=== PATIENT | female | born 1970 | race Caucasian/White ===

== ENCOUNTER 2021-05-02 08:50 | Day surgery (SDC) | payer BC ==
--- NOTE | 2021-05-02 07:57 | PCM.PREANE ---
Preanesthetic Assessment - Procedure Proposed Procedure: Laparoscopic Cholecystectomy - Anesthesia/Transfusion/Family Hx Anesthesia History: Prior Anesthesia Without Reaction Family History of Anesthesia Reaction: No Transfusion History: No Prior Transfusion(s) Intubation History: Unknown - Review of Systems General: No Symptoms, Fatigue Pulmonary: No Symptoms (Smoker: 1 cigarette per week for past few months/times 16 years), Shortness of Breath Cardiovascular: No Symptoms (Non-ischemic cardiomyopathy, HTN, PVC, hyperlipidemia/ History of cardiac catheterization: 2011 negative/no blockage per patient), Dyspnea on Exertion (with prolonged standing) Gastrointestinal: No Symptoms (GERD-controlled), Abdominal Pain, Nausea (yesterday), Vomiting Neurological: No Symptoms, Numbness (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) Other: Reports: Diabetes (am blood sugar= 278 @ 0630), Depression, Anxiety (Bipolar) - Physical Assessment NPO Status Date: 05/01/21 NPO Status Time: 19:30 Vital Signs: HR: 75 Sat: 92% Temp: 97 B/P: 136/77 Resp: 20 Height: 1.68 m Weight: 135 kg ASA Class: 3 Mental Status: Alert & Oriented x3 Airway Class: Mallampati = 2 (upper) Dentition: Reports: Dentures, Caries Thyro-Mental Finger Breadths: 3 Mouth Opening Finger Breadths: 3 ROM/Head Extension: Full Lungs: Clear to Auscultation, Normal Respiratory Effort Cardiovascular: Regular Rate, Regular Rhythm, No Murmurs - Lab Values: All labs reviewed and noted and within acceptable ranges to proceed with scheduled procedure. HGBA1C= greater than 14 GFR= 54 - Imaging/EKG Impressions: EKG: SR rate= 73, borderline T wave abnormalities anterior leads, Nonspecific intraventricular conduction delay Holter Monitor: SR with no evidence of any tachy or faraz arrhythmias. Echocardiogram:04/24/21: EF= 60-65% CXR: negative - Allergies Allergies/Adverse Reactions: Allergies Allergy/AdvReac Type Severity Reaction Status Date / Time PILAR Inhibitors Allergy Cough Verified 05/01/21 16:05 lamotrigine [From Lamictal] Allergy Cannot Verified 05/01/21 16:05 Remember mold Allergy Cannot Verified 05/01/21 16:05 Remember - Anesthesia Plan Pre-Op Medication Ordered: Beta Aisha, Other (Preoperative oral meds: gabapentin 300mg and tylenol 975 mg @ 1000) Beta Aisha: Other (sotalol) Med Last Dose Date: 05/02/21 Med Last Dose Time: 06:30 - Acknowledgements Anesthesia Type Planned: General Anesthesia Pt an Appropriate Candidate for the Planned Anesthesia: Yes Alternatives and Risks of Anesthesia Discussed w Pt/Guardian: Yes Pt/Guardian Understands and Agrees with Anesthesia Plan: Yes PreAnesthesia Questionnaire HEENT History: Reports: Impaired Vision, Other (See Below) Other HEENT History: wears glasses, has dentures Cardiovascular History: Reports: Arrhythmia, Cardiomyopathy, High Cholesterol, Hypertension, Other (See Below) Other Cardiovascular History: PVCs, non-ischemic cardiomyopathy, heart catheterization in 2011 Respiratory History: Reports: None Gastrointestinal History: Reports: None Genitourinary History: Reports: None BUSINESS DEVELOPMENT ENGINEER History: Reports: None Musculoskeletal History: Reports: None Neurological History: Reports: Migraines Psychiatric History: Reports: Bipolar, Depression, PTSD Endocrine/Metabolic History: Reports: Obesity/BMI 30+ Hematologic History: Reports: None Immunologic History: Reports: None Oncologic (Cancer) History: Reports: None - Infectious Disease History Infectious Disease History: Reports: None - Past Surgical History Head Surgeries/Procedures: Reports: None HEENT Surgical History: Reports: Oral Surgery Cardiovascular Surgical History: Reports: None Respiratory Surgical History: Reports: None GI Surgical History: Reports: None Female Surgical History: Reports: None Male Surgical History: Reports: None Endocrine Surgical History: Reports: None Neurological Surgical History: Reports: None Musculoskeletal Surgical History: Reports: None, Other (See Below) Oncologic Surgical History: Reports: None Dermatological Surgical History: Reports: Other (See Below) - SUBSTANCE USE Tobacco Use Status *Q: Current Every Day Tobacco User Recreational Drug Use History: No - HOME MEDS Home Medications: Home Meds Sotalol [Betapace] 80 mg PO BID 03/19/16 [History] Empagliflozin [Jardiance] 10 mg PO QAM 05/01/21 [History] Fenofibric Acid (Choline) [Trilipix] 135 mg PO DAILY 05/01/21 [History] Omeprazole Magnesium [Prilosec Otc] 20 mg PO QAM 05/01/21 [History] Sertraline [Zoloft] 100 mg PO DAILY 05/01/21 [History] Topiramate [Topamax] 75 mg PO BID 05/01/21 [History] buPROPion [Wellbutrin SR] 150 mg PO DAILY 05/01/21 [History] busPIRone [Buspar] 15 mg PO TID 05/01/21 [History] carvediloL [Coreg] 25 mg PO BID 05/01/21 [History] hydrOXYzine HCL [hydrOXYzine] 50 - 150 mg PO BEDTIME PRN 05/01/21 [History] metFORMIN [Glucophage XR] 500 mg PO BID 05/01/21 [History] - CURRENT (IN HOUSE) MEDS Current Meds: Current Medications Lactated Ringer's (Ringers, Lactated) 1,000 mls @ 125 mls/hr IV ASDIRECTED KIRSTIE Stop: 05/02/21 23:00 Lidocaine/Sodium Bicarbonate (Lidocaine 1%/Sod Bicarbonate In Ns 8.4% 1 Ml Syringe) 0.25 ml IDERM ONETIME PRN PRN Reason: Prior to IV Start Stop: 05/02/21 18:00 Sodium Chloride (Sodium Chloride 0.9% 10 Ml Syringe) 10 ml FLUSH ASDIRECTED PRN PRN Reason: Keep Vein Open Stop: 05/02/21 18:00
[~2021-05-02 08:50] MED LIST: Albuterol 0.083% 2.5 MG/3 ML Neb Soln NEB PRN; Lactated Ringers 1,000 ML IV SCH; Lidocaine 1%/Sod Bicarbonate in NS 8.4% 1 ML Syringe IDERM PRN; Sodium Chloride 0.9% 10 ML Syringe FLUSH PRN
[2021-05-02] MEDS ORDERED: Midazolam 1 MG/ML 2 ML SDV ONE (09:13)
[2021-05-02] MEDS ORDERED: Propofol 200 MG/20 ML SDV ONE ×2 (09:13→10:04)
[2021-05-02] MEDS ORDERED: fentaNYL 250 MCG/5 ML SDV ONE (09:14)
[2021-05-02] MEDS ORDERED: Lidocaine 1% with EPINEPHrine 1:100,000 10 ML MDV ONE (09:15)
[2021-05-02] MEDS ORDERED: Bupivacaine 0.5%/EPINEPHrine 1:200,000 50 ML MDV ONE (09:15)
[2021-05-02] MEDS ORDERED: Rocuronium 50 MG/5 ML Vial ONE (09:22)
[2021-05-02] MEDS ORDERED: Succinylcholine/Sod PF 100 MG/5 ML SYRINGE IV ONE (09:23)
[2021-05-02] MEDS ORDERED: Gabapentin 300 MG Cap PO SCH (09:29)
[2021-05-02] MEDS ORDERED: Acetaminophen 325 MG Tab PO SCH (09:30)
[2021-05-02] MEDS ORDERED: ceFAZolin 1 GM Vial ONE ×2 (10:05)
[2021-05-02 10:10] LABS: HEMOGLOBIN A1C 11.8 %
[2021-05-02] MEDS ORDERED: Insulin Regular, Human 100 Units/ML 3 ML Vial IV ONE (10:15)
[2021-05-02] MEDS ORDERED: HYDROmorphone 0.5 MG/0.5 ML Syringe IVPUSH PRN (10:17)
[2021-05-02] MEDS ORDERED: fentaNYL 100 MCG/2 ML SDV IVPUSH PRN (10:17)
[2021-05-02] MEDS ORDERED: Ondansetron 4 MG/2 ML SDV IVPUSH PRN (10:17)
[2021-05-02] MEDS ORDERED: Ketorolac 30 MG/ML SDV ONE (10:44)
[2021-05-02] MEDS ORDERED: Ondansetron 4 MG/2 ML SDV ONE (10:44)
[2021-05-02] MEDS ORDERED: Glycopyrrolate 0.2 MG/ML SDV ONE (10:44)
[2021-05-02] MEDS ORDERED: Ketamine 500 mg/10 ML MDV ONE (10:45)
[2021-05-02] MEDS ORDERED: Dexamethasone 4 MG/ML 5 ML MDV ONE (10:46)
[2021-05-02] MEDS ORDERED: Insulin Regular, Human 100 Units/ML 3 ML Vial ONE (10:51)
[2021-05-02] MEDS ORDERED: Sodium Chloride 0.9% 100 ML ONE (10:52)
[2021-05-02] MEDS ORDERED: Lactated Ringers 1,000 ML ONE (11:41)
--- NOTE | 2021-05-02 11:43 | PCM.OPNOTE ---
- General Post-Op/Procedure Note Date of Surgery/Procedure: 05/02/21 Operative Procedure(s): laparoscopic cholecystectomy Findings: normal gallbladder anatomy Pre Op Diagnosis: biliary colic Post-Op Diagnosis: same Anesthesia Technique: General ET Tube, Local Primary Surgeon: Jerri Solis Anesthesia Provider: Danita Hernandez Pathology: gallbladder with contents Fluid Replacement, Intraop: 1,000 EBL in mLs: 15 Complications: none apparent Condition: Good
--- NOTE | 2021-05-02 11:56 | PCM.PRNOTE ---
- Free Text/Narrative Note: OPERATIVE REPORT Date of Surgery/Procedure: April Operative Procedure(s): laparoscopic cholecystectomy Findings: Normal gallbladder anatomy Pre Op Diagnosis: biliary colic Post-Op Diagnosis: Same Anesthesia Technique: General ET Tube Primary Surgeon: Jerri Solis MD Anesthesia Provider: Rocío Hernandez CRNa Pathology: Gallbladder with contents Fluid Replacement, Intraop: 1000cc Output, Urine Amount: 0cc EBL: 15cc Drain/Tube Comments: None Indication for the procedure: The patient is a 50-year-old lady who presented to my office with significant RUQ pain consistent with biliary colic. The patient was counseled for laparoscopic cholecystectomy, with possible conversion to open. After discussion of the risks of infection, bleeding and injury to the bile duct as well as increased complication from previous intra-abdominal surgery, the patient's consent was obtained. Description of the procedure: The patient presented to the outpatient holding area on the day of the procedure. The history and physical were verified and consent was present and on the chart. The patient was taken back to the operating room and placed in supine position on the operating table. SCD boots were placed and functional prior to the start of the procedure. Preoperative antibiotics were administered according to SCIP protocol, Ancef 3 g IV. A surgical timeout was performed. The patient then had induction of general anesthesia and was intubated without difficulty. The patient was prepped and draped in standard surgical fashion. We began by making a left upper quadrant 5 mm incision. A 5 mm bariatric port was then used to enter the abdomen using the Visiport technique. The abdomen was insufflated to 15 mmHg. A TAP block was then performed using 1% lidocaine with epinephrine mixed with 0.5% bupivacaine with epinephrine. We then proceeded with placing our additional ports. A 5 mm port was placed in the supraumbilical midline A 12mm port was placed in the epigastric region. Two additional 5mm ports placed under direct visualization in the right upper quadrant. The patient was then positioned with head up and right side up to facilitate exposure of the gallbladder. Once we had sufficiently exposed the dome of the gallbladder. This was grasped and retracted cephalad. We proceeded with our dissection to expose the cystic duct and cystic artery. We did have a critical view. The cystic duct and artery were then clipped and cut using endoscopic scissors. We then proceeded to fully dissect the gallbladder off of the cystic plate using the Bovie device. The gallbladder was then placed in the Endo Catch bag and withdrawn towards the umbilical port. We then inspected the area of the dissection. There was no significant bleeding and hemostasis was achieved. We then inspected the port sites and desufflated the abdomen. The ports were then removed. The gallbladder was withdrawn through the epigastric port site. A superficial 4-0 monocryl suture was used to approximate the skin. The skin was covered with Dermabond surgical glue. The patient tolerated the procedure well and was extubated without difficulty. The patient was transported to the PACU in stable condition. All sponge, needle counts correct. I was scrubbed and actively participated in the entire procedure. No immediate complications noted. Complications: None apparent Condition: Good Jerri Solis MD General Surgery
--- NOTE | 2021-05-02 12:21 | PCM.POSTAN ---
POST ANESTHESIA ASSESSMENT - MENTAL STATUS Mental Status: Alert - VITAL SIGNS Vital Signs: Last Vital Signs Temp 36.3 C 05/02/21 12:02 Pulse 69 05/02/21 12:17 Resp 20 05/02/21 12:17 BP 114/65 05/02/21 12:17 Pulse Ox 90 L 05/02/21 12:17 - RESPIRATORY Respiratory Status: Respiratory Rate WNL, Airway Patent, O2 Saturation Stable, Supplemental Oxygen - CARDIOVASCULAR CV Status: Pulse Rate WNL, Blood Pressure Stable - GASTROINTESTINAL GI Status: No Symptoms - PAIN Pain Score: 4 - POST OP HYDRATION Hydration Status: Adequate & Stable
--- NOTE | 2021-05-02 14:15 | PCM48HPAN ---
Post Anesthesia Note - EVALUATION WITHIN 48HRS OF ANESTHETIC Vital Signs in Normal Range: Yes Patient Participated in Evaluation: Yes Respiratory Function Stable: Yes Airway Patent: Yes Cardiovascular Function Stable: Yes Hydration Status Stable: Yes Pain Control Satisfactory: Yes Nausea and Vomiting Control Satisfactory: Yes Mental Status Recovered: Yes Vital Signs: Last Vital Signs Temp 36.3 C 05/02/21 12:02 Pulse 63 05/02/21 13:55 Resp 16 05/02/21 13:55 BP 97/51 L 05/02/21 13:55 Pulse Ox 90 L 05/02/21 13:55
--- NOTE | 2021-05-02 14:19 | PCM.SN.2 ---
- Free Text/Narrative Note: nursing staff alerted me to the patient spontaneously desaturating while in bed. the patient is denying any shortness of breath. she only knows her saturations are decreased because she hears the monitor alarming. I was okay with the patient being discharged to home after her recovery time. Upon admission, her saturations were 90% on room air. She does come up on her own. dog daycare provider did put her back on o2. Plan is if she continues to need o2 after 1430 to have her admitted to the floor, which was the original preop plan.
[2021-05-02] MEDS: Ibuprofen 600 MG Tab PO PRN (16:25)
[2021-05-02] MEDS: Docusate Sodium 100 MG Cap PO SCH (20:47)
[2021-05-02] MEDS: Acetaminophen/oxyCODONE 325-5 MG Tab PO PRN (20:47)
[2021-05-03] MEDS: Acetaminophen/oxyCODONE 325-5 MG Tab PO PRN (03:30)
[2021-05-03] MEDS: Ibuprofen 600 MG Tab PO PRN (08:09)
[2021-05-03] MEDS: Docusate Sodium 100 MG Cap PO SCH (08:09)
[2021-05-03 08:45] VITALS: BP 132/89; PULSE 61
== END 2021-05-03 09:37 | disposition home or self-care (01) ==
LOC: JD.SDS 08:50 → JD.MS 16:08 → JD.SDS 05-03 09:37
PROVIDERS: ATTEND Surgery
DX: K80.10 Calculus of gallbladder with chronic cholecystitis without obstruction (principal); I10 Essential (primary) hypertension; E78.2 Mixed hyperlipidemia; F17.210 Nicotine dependence, cigarettes, uncomplicated; E66.9 Obesity, unspecified; Z98.890 Other specified postprocedural states; Z79.899 Other long term (current) drug therapy; Z88.8 Allergy status to other drugs, medicaments and biological substances; Z68.42 Body mass index [BMI] 45.0-49.9, adult
CPT/HCPCS: 36415; 47562; 82947; 83036; 94640; A9270; J0330; J0690; J1100; J1170; J1815; J1885; J2250; J2370; J2405; J2704; J2710; J3010; J3490; J7120; 00790

== ENCOUNTER 2021-06-13 06:53 | Day surgery (SDC) | payer BC, MEDICAID, OTHER ==
[~2021-06-13 06:53] MED LIST changes: -Albuterol 0.083% 2.5 MG/3 ML Neb Soln NEB PRN; +Albuterol 0.083% 2.5 MG/3 ML Neb Soln NEB SCH; -Lactated Ringers 1,000 ML IV SCH; +Lidocaine 1% 6 ML ONE; -Lidocaine 1%/Sod Bicarbonate in NS 8.4% 1 ML Syringe IDERM PRN; +Midazolam 1 MG/ML 2 ML SDV ONE; +Propofol 200 MG/20 ML SDV ONE; -Sodium Chloride 0.9% 10 ML Syringe FLUSH PRN
[2021-06-13] MEDS ORDERED: Lidocaine 1%/Sod Bicarbonate in NS 8.4% 1 ML Syringe IDERM PRN (07:00)
[2021-06-13] MEDS ORDERED: Lactated Ringers 1,000 ML IV SCH (07:00)
[2021-06-13] MEDS ORDERED: Sodium Chloride 0.9% 10 ML Syringe FLUSH PRN (07:00)
--- NOTE | 2021-06-13 07:12 | PCM.PREANE ---
Preanesthetic Assessment - Procedure Proposed Procedure: EGD - Anesthesia/Transfusion/Family Hx Anesthesia History: Prior Anesthesia Without Reaction Type of Anesthesia Reaction: Other (see below) (Patient stated that oxygen was on the "lower end" following her lap matias in April and had to stay over night on oxygen) Family History of Anesthesia Reaction: No Transfusion History: No Prior Transfusion(s) Intubation History: Unknown (Patient previously intubated with glidescope without issues) - Review of Systems General: No Symptoms Pulmonary: No Symptoms Cardiovascular: No Symptoms (METS greater than 4) Gastrointestinal: Abdominal Pain (Ocassional pain at umbical port site (from lap matias in April), GERD) Neurological: No Symptoms Other: Reports: Diabetes, Depression, Anxiety - Physical Assessment NPO Status Date: 06/12/21 NPO Status Time: 23:00 Vital Signs: BP 137/77 HR 75 RR 20 Temp 97.8 93% RA Height: 1.68 m Weight: 306.3 kg ASA Class: 3 Mental Status: Alert & Oriented x3 Airway Class: Mallampati = 2 Dentition: Reports: Dentures (on top), Partial (Partial on bottom), Missing Tooth/Teeth, Caries Thyro-Mental Finger Breadths: 3 Mouth Opening Finger Breadths: 3 ROM/Head Extension: Full Lungs: Clear to Auscultation, Normal Respiratory Effort, Decreased Breath Sounds Cardiovascular: Regular Rate, Regular Rhythm, No Murmurs - Lab Values: Hbg A1C: greater than 14 - Imaging/EKG Impressions: EKG 12/27/20: NSR nonspecific intraventricular conduction delay, low voltage, precordial leads, borderline T abnormalities, anterior leads HR 73 ECHO January 2015: EF 60-65% Holter monitor 09/24/19: no tachyarrhythmias or bradyarrhythmias Cardiac heart cath 2011: negative /no blockage per patient - Allergies Allergies/Adverse Reactions: Allergies Allergy/AdvReac Type Severity Reaction Status Date / Time lamotrigine [From Lamictal] Allergy Cannot Verified 06/12/21 12:10 Remember mold Allergy Cannot Verified 06/12/21 12:10 Remember PILAR Inhibitors AdvReac Cough Verified 06/12/21 12:10 - Blood Blood Available: No Product(s) Available: None - Anesthesia Plan Beta Aisha: Carvedilol (Carvedilol and Sotalol taken this morning at) Med Last Dose Date: 06/13/21 Med Last Dose Time: 05:30 - Acknowledgements Anesthesia Type Planned: MAC Pt an Appropriate Candidate for the Planned Anesthesia: Yes Alternatives and Risks of Anesthesia Discussed w Pt/Guardian: Yes Pt/Guardian Understands and Agrees with Anesthesia Plan: Yes PreAnesthesia Questionnaire HEENT History: Reports: Impaired Vision, Other (See Below) Other HEENT History: wears glasses, has dentures Cardiovascular History: Reports: Arrhythmia, Cardiomyopathy, High Cholesterol, Hypertension, Other (See Below) Other Cardiovascular History: PVCs, non-ischemic cardiomyopathy, heart catheterization in 2011 Respiratory History: Reports: None Other Respiratory History: Patient lays flat at night with no issues Gastrointestinal History: Reports: GERD Genitourinary History: Reports: None CONNECTION WORKER History: Reports: None Musculoskeletal History: Reports: Arthritis Other Musculoskeletal History: Left shoulder and back arthritis Neurological History: Reports: Migraines Psychiatric History: Reports: Anxiety, Bipolar, Depression, PTSD Endocrine/Metabolic History: Reports: Diabetes, Type II, Obesity/BMI 30+ Other Endocrine/Metabolic History: Hyperglycemia Hematologic History: Reports: None Immunologic History: Reports: None Oncologic (Cancer) History: Reports: None Dermatologic History: Reports: Other (See Below) Other Dermatologic History: open sore in umbicus, Dr. Heard aware. - Infectious Disease History Infectious Disease History: Reports: None - Past Surgical History Head Surgeries/Procedures: Reports: None HEENT Surgical History: Reports: Oral Surgery Other Cardiovascular Surgeries/Procedures: Heart cath-negative Respiratory Surgical History: Reports: None GI Surgical History: Reports: Cholecystectomy Female Surgical History: Reports: None Male Surgical History: Reports: None Endocrine Surgical History: Reports: None Neurological Surgical History: Reports: None Musculoskeletal Surgical History: Reports: Other (See Below) Other Musculoskeletal Surgeries/Procedures:: Right foot surgery for foreign body removal of glass 1998 Oncologic Surgical History: Reports: None Dermatological Surgical History: Reports: Other (See Below) (cyst removed on neck in 1972) - SUBSTANCE USE Tobacco Use Status *Q: Current Some Day Tobacco User Tobacco Use Within Last Twelve Months: No Second Hand Smoke Exposure: Yes Days Per Week of Alcohol Use: 0 Number of Drinks Per Day: 0 Total Drinks Per Week: 0 Recreational Drug Use History: No - HOME MEDS Home Medications: Home Meds Sotalol [Betapace] 80 mg PO BID 03/19/16 [History] Empagliflozin [Jardiance] 10 mg PO QAM 05/01/21 [History] Fenofibric Acid (Choline) [Trilipix] 135 mg PO DAILY 05/01/21 [History] Omeprazole Magnesium [Prilosec Otc] 20 mg PO QAM 05/01/21 [History] Sertraline [Zoloft] 100 mg PO DAILY 05/01/21 [History] Topiramate [Topamax] 75 mg PO BID 05/01/21 [History] buPROPion [Wellbutrin SR] 150 mg PO DAILY 05/01/21 [History] busPIRone [Buspar] 15 mg PO TID 05/01/21 [History] carvediloL [Coreg] 25 mg PO BID 05/01/21 [History] hydrOXYzine HCL [hydrOXYzine] 50 - 150 mg PO BEDTIME PRN 05/01/21 [History] Acetaminophen/oxyCODONE [Percocet 325-5 MG] 1 each PO Q4H PRN 14 Days #25 tab 05/02/21 [Rx] Docusate Sodium [Colace] 100 mg PO BID 20 Days #40 cap 05/02/21 [Rx] Ibuprofen 600 mg PO Q6H PRN 14 Days #60 tablet 05/02/21 [Rx] - CURRENT (IN HOUSE) MEDS Current Meds: Current Medications Albuterol (Albuterol 0.083% 2.5 Mg/3 Ml Neb Soln) 2.5 mg NEB ONETIME KIRSTIE Stop: 06/13/21 18:00 Lactated Ringer's (Ringers, Lactated) 1,000 mls @ 125 mls/hr IV ASDIRECTED KIRSTIE Stop: 06/13/21 23:00 Lidocaine/Sodium Bicarbonate (Lidocaine 1%/Sod Bicarbonate In Ns 8.4% 1 Ml Syringe) 0.25 ml IDERM ONETIME PRN PRN Reason: Prior to IV Start Stop: 06/13/21 23:00 Sodium Chloride (Sodium Chloride 0.9% 10 Ml Syringe) 10 ml FLUSH ASDIRECTED PRN PRN Reason: Keep Vein Open Stop: 06/13/21 23:00 Discontinued Medications Lidocaine HCl (Xylocaine-Mpf 1%) Confirm Administered Dose 6 mls @ as directed .ROUTE .STK-MED ONE Stop: 06/13/21 06:51 Midazolam HCl (Midazolam 1 Mg/Ml 2 Ml Sdv) Confirm Administered Dose 2 mg .ROUTE .STK-MED ONE Stop: 06/13/21 06:50 Propofol (Propofol 200 Mg/20 Ml Sdv) Confirm Administered Dose 200 mg .ROUTE .STK-MED ONE Stop: 06/13/21 06:50 Propofol (Propofol 200 Mg/20 Ml Sdv) Confirm Administered Dose 200 mg .ROUTE .STK-MED ONE Stop: 06/13/21 06:50
[2021-06-13] MEDS ORDERED: Propofol 200 MG/20 ML SDV ONE (08:16)
--- NOTE | 2021-06-13 08:47 | PCM48HPAN ---
Post Anesthesia Note - EVALUATION WITHIN 48HRS OF ANESTHETIC Vital Signs in Normal Range: Yes Patient Participated in Evaluation: Yes Respiratory Function Stable: Yes Airway Patent: Yes Cardiovascular Function Stable: Yes Hydration Status Stable: Yes Pain Control Satisfactory: Yes Nausea and Vomiting Control Satisfactory: Yes Mental Status Recovered: Yes Vital Signs: Last Vital Signs Temp 97.9 F 06/13/21 06:50 Pulse 75 06/13/21 06:50 Resp 20 06/13/21 06:50 BP 137/77 06/13/21 06:50 Pulse Ox 92 L 06/13/21 06:50 0837 vital signs following procedure: 106/65 HR 68 RR 20 93% 1 L 97.6
--- NOTE | 2021-06-13 08:48 | PCM.PRNOTE ---
- Free Text/Narrative Note: Operative Report Date of procedure: June 13, 2021 Preoperative diagnosis: upper abdominal pain, heartburn, reflux Postoperative diagnosis: same Surgeon: Jerri Solis M.D. Procedure: EGD Anesthesia: MAC Religion Professor: Tamika Rincon CRNA IV fluids: 500mL Estimated blood loss: 0 mL Findings: 1. Ellison's esophagus changes (<2cm length) 2. Gastritis 3. Gastric ulcers 4. Bile reflux 5. Peptic duodenitis Specimens: 1. Duodenum 2. Gastric antrum 3. Distal esophagus biopsies Indication: The patient is a 50-year-old who presented with continued complaints of upper abdominal pain, reflux and heartburn. She has persistent symptoms despite recent cholecystectomy. The patient was consented for an EGD. Risk of bleeding and perforation were discussed. The patient's consent was obtained. Description of the procedure: The patient was taken to the endoscopy suite and placed on hemodynamic monitoring. The nurse commercial director induced MAC anesthesia. A bite block was placed. The patient was positioned in the left lateral decubitus position. A timeout was performed. The endoscope was gently placed into the mouth to the back of the pharynx and introduced into the esophagus. The scope was gently advanced under direct visualization down to the level of the lower esophageal sphincter. The stomach was then entered. Normal rugal folds were noted. The scope was advanced into the antrum. We noted linear erythema consistent with gastritis, as well as multiple 2-4mm healing ulcerations in the antrum and pre-pyloric stomach. This area was biopsied with a cold biopsy forceps for histology and H. pylori testing. The pylorus was then entered and the first and second portion of the duodenum was inspected. We did note multiple flat polyps consistent with peptic duodenitis in the duodenal bulb. This was biopsied with a cold biopsy forceps. There were no ulcerations in the duodenum. The scope was then retroflexed in the cardia and fundus were investigated. There is no evidence of any hiatal hernia. There was bilious fluid pooling in the stomach consistent with Bile reflux. No other abnormalities were noted. The scope was then withdrawn while inspecting the esophagus. The Z line was noted at 42 cm from the mouth. There were two tongues of salmon-colored mucosa extending < 2cm into the distal esophagus. This area was biopsied in four quadrants with a cold biopsy forceps. There was no esophagitis. The procedure was terminated. the patient tolerated the procedure well without any evidence of complications. Jerri Solis MD General Surgery
--- NOTE | 2021-06-13 08:48 | PCM.OPNOTE ---
- General Post-Op/Procedure Note Date of Surgery/Procedure: 06/13/21 Operative Procedure(s): EGD Findings: 1. Ellison's esophagus changes (<2cm length) 2. Gastritis 3. Gastric ulcers 4. Bile reflux 5. Peptic duodenitis Pre Op Diagnosis: upper abdominal pain, reflux, heartburn Post-Op Diagnosis: same Anesthesia Technique: QUIQUE Primary Surgeon: Jerri Solis Anesthesia Provider: Tamika Rincon Pathology: 1. Duodenum 2. Gastric antrum 3. Distal esophagus biopsies Fluid Replacement, Intraop: 500 Output, Urine Amount: 0 EBL in mLs: 0 Complications: none apparent Condition: Good
[2021-06-13 09:38] VITALS: BP 135/59; PULSE 69
== END 2021-06-13 09:32 | disposition home or self-care (01) ==
LOC: JD.SDS 06:53
PROVIDERS: ATTEND Surgery
DX: K29.90 Gastroduodenitis, unspecified, without bleeding (principal); K22.70 Barrett's esophagus without dysplasia; K25.9 Gastric ulcer, unspecified as acute or chronic, without hemorrhage or perforation; K21.00 Gastro-esophageal reflux disease with esophagitis, without bleeding; K31.89 Other diseases of stomach and duodenum; I10 Essential (primary) hypertension; E78.1 Pure hyperglyceridemia; F17.210 Nicotine dependence, cigarettes, uncomplicated; E66.9 Obesity, unspecified; Z68.42 Body mass index [BMI] 45.0-49.9, adult; Z79.899 Other long term (current) drug therapy
CPT/HCPCS: 00731; 82947; 94640; J2250; J2704; J7120

== ENCOUNTER 2021-09-12 06:55 | Day surgery (SDC) | payer MEDICAID ==
[~2021-09-12 06:55] MED LIST changes: -Albuterol 0.083% 2.5 MG/3 ML Neb Soln NEB SCH; +Lactated Ringers 1,000 ML IV SCH; -Lidocaine 1% 6 ML ONE; +Lidocaine 1%/Sod Bicarbonate in NS 8.4% 1 ML Syringe IDERM PRN; -Midazolam 1 MG/ML 2 ML SDV ONE; -Propofol 200 MG/20 ML SDV ONE; +Sodium Chloride 0.9% 10 ML Syringe FLUSH PRN
--- NOTE | 2021-09-12 07:26 | PCM.PREANE ---
Preanesthetic Assessment - Procedure Proposed Procedure: EGD - Anesthesia/Transfusion/Family Hx Anesthesia History: Prior Anesthesia Without Reaction Family History of Anesthesia Reaction: No Transfusion History: No Prior Transfusion(s) Intubation History: Unknown (Patient previously intubated with glidescope without issues) - Review of Systems General: Weakness Pulmonary: No Symptoms Cardiovascular: Dyspnea on Exertion Gastrointestinal: No Symptoms Neurological: Numbness (right foot) Other: Reports: Diabetes (DMII blood sugar this AM 313) - Physical Assessment NPO Status Date: 09/11/21 NPO Status Time: 00:00 Vital Signs: Last Vital Signs Temp 36.6 C 09/12/21 07:00 Pulse 81 09/12/21 07:00 Resp 16 09/12/21 07:00 BP 101/69 09/12/21 07:00 Pulse Ox 93 L 09/12/21 07:00 Height: 1.68 m Weight: 135 kg ASA Class: 3 Mental Status: Alert & Oriented x3 Airway Class: Mallampati = 3 Dentition: Reports: Dentures, Missing Tooth/Teeth Thyro-Mental Finger Breadths: 2 Mouth Opening Finger Breadths: 2 ROM/Head Extension: Full Lungs: Clear to Auscultation, Normal Respiratory Effort Cardiovascular: Regular Rate, Regular Rhythm - Imaging/EKG Impressions: EKG SR rate 73 EF 60-65% - Allergies Allergies/Adverse Reactions: Allergies Allergy/AdvReac Type Severity Reaction Status Date / Time lamotrigine [From Lamictal] Allergy Cannot Verified 09/11/21 16:11 Remember mold Allergy Cannot Verified 09/11/21 16:11 Remember PILAR Inhibitors AdvReac Cough Verified 09/11/21 16:11 - Blood Blood Available: No Product(s) Available: None - Anesthesia Plan Pre-Op Medication Ordered: Beta Aisha Beta Aisha: Carvedilol Med Last Dose Date: 09/12/21 Med Last Dose Time: 06:00 - Acknowledgements Anesthesia Type Planned: MAC Pt an Appropriate Candidate for the Planned Anesthesia: Yes Alternatives and Risks of Anesthesia Discussed w Pt/Guardian: Yes Pt/Guardian Understands and Agrees with Anesthesia Plan: Yes PreAnesthesia Questionnaire HEENT History: Reports: Impaired Vision, Other (See Below) Other HEENT History: wears glasses, has dentures Cardiovascular History: Reports: Arrhythmia, Cardiomyopathy, High Cholesterol, Hypertension Other Cardiovascular History: PVCs, non-ischemic cardiomyopathy, heart catheterization in 2011 Respiratory History: Reports: None Gastrointestinal History: Reports: GERD Genitourinary History: Reports: None MEDICATION SPECIALIST History: Reports: None Musculoskeletal History: Reports: Arthritis Other Musculoskeletal History: Left shoulder and back arthritis Neurological History: Reports: Migraines Psychiatric History: Reports: Anxiety, Bipolar, Depression, PTSD Endocrine/Metabolic History: Reports: Diabetes, Type II, Obesity/BMI 30+ Other Endocrine/Metabolic History: Hyperglycemia Hematologic History: Reports: None Immunologic History: Reports: None Oncologic (Cancer) History: Reports: None Dermatologic History: Reports: Other (See Below) Other Dermatologic History: open sore in umbicus, Dr. Féilx nguyen. - Infectious Disease History Infectious Disease History: Reports: None - Past Surgical History Head Surgeries/Procedures: Reports: None HEENT Surgical History: Reports: Oral Surgery Cardiovascular Surgical History: Reports: None Other Cardiovascular Surgeries/Procedures: Heart cath-negative Respiratory Surgical History: Reports: None GI Surgical History: Reports: Cholecystectomy, EGD Female Surgical History: Reports: Tubal Ligation Male Surgical History: Reports: None Endocrine Surgical History: Reports: None Neurological Surgical History: Reports: None Musculoskeletal Surgical History: Reports: Other (See Below) Other Musculoskeletal Surgeries/Procedures:: Right foot surgery for foreign body removal of glass 1998 Oncologic Surgical History: Reports: None Dermatological Surgical History: Reports: Other (See Below) - SUBSTANCE USE Tobacco Use Status *Q: Former Tobacco User Tobacco Use Within Last Twelve Months: Cigarettes Second Hand Smoke Exposure: Yes Days Per Week of Alcohol Use: 0 Number of Drinks Per Day: 0 Total Drinks Per Week: 0 Recreational Drug Use History: No - HOME MEDS Home Medications: Home Meds Sotalol [Betapace] 80 mg PO BID 03/19/16 [History] Empagliflozin [Jardiance] 10 mg PO QAM 05/01/21 [History] Fenofibric Acid (Choline) [Trilipix] 135 mg PO DAILY 05/01/21 [History] Sertraline [Zoloft] 150 mg PO DAILY 05/01/21 [History] buPROPion [Wellbutrin SR] 150 mg PO DAILY 05/01/21 [History] busPIRone [Buspar] 15 mg PO TID 05/01/21 [History] carvediloL [Coreg] 25 mg PO BID 05/01/21 [History] hydrOXYzine HCL [hydrOXYzine] 50 - 150 mg PO BEDTIME PRN 05/01/21 [History] Pantoprazole Sodium [Protonix] 40 mg PO ACBREAKFAST #90 tablet.dr 06/13/21 [Rx] Sucralfate [Carafate] 1 gm PO Q6HR #120 tab 06/13/21 [Rx] Liraglutide [Victoza 2-Talib] 1.8 mg SQ DAILY 09/11/21 [History] Losartan/Hydrochlorothiazide [Hyzaar 100-25 Tablet] 1 tab PO BID 09/11/21 [History] Triamcinolone Acetonide [Triamcinolone Acetonide 0.1% Crm] 1 dose TOP BID 09/11 [History] metFORMIN [Glucophage] 1,000 mg PO BID 09/11/21 [History] - CURRENT (IN HOUSE) MEDS Current Meds: Current Medications Lactated Ringer's (Ringers, Lactated) 1,000 mls @ 125 mls/hr IV ASDIRECTED KIRSTIE Stop: 09/12/21 23:00 Lidocaine/Sodium Bicarbonate (Lidocaine 1%/Sod Bicarbonate In Ns 8.4% 1 Ml Syringe) 0.25 ml IDERM ONETIME PRN PRN Reason: Prior to IV Start Stop: 09/12/21 23:00 Sodium Chloride (Sodium Chloride 0.9% 10 Ml Syringe) 10 ml FLUSH ASDIRECTED PRN PRN Reason: Keep Vein Open Stop: 09/12/21 23:00
[2021-09-12] MEDS ORDERED: Propofol 200 MG/20 ML SDV ONE ×2 (07:52→08:21)
[2021-09-12] MEDS ORDERED: Midazolam 1 MG/ML 2 ML SDV ONE (07:52)
[2021-09-12] MEDS ORDERED: Lidocaine 1% 4 ML ONE (07:52)
[2021-09-12 08:43] VITALS: PULSE 66
--- NOTE | 2021-09-12 08:43 | PCM48HPAN ---
Post Anesthesia Note - EVALUATION WITHIN 48HRS OF ANESTHETIC Vital Signs in Normal Range: Yes Patient Participated in Evaluation: Yes Respiratory Function Stable: Yes Airway Patent: Yes Cardiovascular Function Stable: Yes Hydration Status Stable: Yes Pain Control Satisfactory: Yes Nausea and Vomiting Control Satisfactory: Yes Mental Status Recovered: Yes Vital Signs: Last Vital Signs Temp 36.6 C 09/12/21 07:00 Pulse 81 09/12/21 07:00 Resp 16 09/12/21 07:00 BP 101/69 09/12/21 07:00 Pulse Ox 93 L 09/12/21 07:00 - COMMENTS/OBSERVATIONS Free Text/Narrative:: no anesthesia complications noted
--- NOTE | 2021-09-12 08:52 | PCM.OPNOTE ---
- General Post-Op/Procedure Note Date of Surgery/Procedure: 09/12/21 Operative Procedure(s): EGD Findings: 1. Peptic duodenitis 2. gastritis 3. Ellison's changes Pre Op Diagnosis: history of gastric ulcers Post-Op Diagnosis: same Anesthesia Technique: QUIQUE Primary Surgeon: Jerri Solis Anesthesia Provider: Alex Harvey Pathology: 1. Gastric antrum biopsies 2. Z-line biopsies 3. Distal esophagus biopsies Fluid Replacement, Intraop: 800 Complications: none apparent Condition: Good
--- NOTE | 2021-09-12 08:53 | PCM.PRNOTE ---
- Free Text/Narrative Note: Operative Report Date of procedure: September 12, 2021 Preoperative diagnosis: History of gastric ulcers Postoperative diagnosis: same Surgeon: Jerri Solis M.D. Procedure: EGD Anesthesia: MAC Cephalometric Technician: Alex Harvey CRNA IV fluids: 800 mL Estimated blood loss: 0 mL Findings: 1. Peptic duodenitis 2. gastritis 3. Ellison's changes Specimens: 1. Gastric antrum biopsies 2. Z-line biopsies 3. Distal esophagus biopsies Indication: The patient is a 50 -year-old lady who presented for a follow up EGD. The patient has a history of gastric ulcer. The patient was consented for an EGD. Risk of bleeding and perforation were discussed. The patient's consent was obtained Description of the procedure: The patient was taken to the endoscopy suite and placed on hemodynamic monitoring. The nurse automatic developer induced MAC anesthesia. A bite block was placed. The patient was positioned in the left lateral decubitus position. A timeout was performed. The endoscope was gently placed into the mouth to the back of the pharynx and introduced into the esophagus. The scope was gently advanced under direct visualization down to the level of the lower esophageal sphincter. The stomach was then entered. Normal rugal folds were noted. The scope was advanced into the antrum. We noted erythema consistent with gastritis. The pylorus was then entered and the first and second portion of the duodenum was inspected. We did note some peptic duodenitis with polyposis in the duodenal bulb. There were no ulcerations in the duodenum. The scope was withdrawn to the antrum and biopsies were taken with a cold biopsy forceps. The scope was then retroflexed in the cardia and fundus were investigated. There was no evidence of any hiatal hernia. No other abnormalities were noted. The scope was then withdrawn while inspecting the esophagus. There was irregularity of the Z-line with two tongues of salmon colored mucosa extending approximately 2 cm into the distal esophagus. Two bottles of four quadrant biopsies were taken for histology. The procedure was terminated. the patient tolerated the procedure well without any evidence of complications. Jerri Solis MD General Surgery
[2021-09-12 09:17] VITALS: BP 114/52
== END 2021-09-12 09:30 | disposition home or self-care (01) ==
LOC: JD.SDS 06:55
PROVIDERS: ATTEND Surgery
DX: K22.70 Barrett's esophagus without dysplasia (principal); K31.89 Other diseases of stomach and duodenum; K31.A19 Gastric intestinal metaplasia without dysplasia, unspecified site; K20.90 Esophagitis, unspecified without bleeding; K25.9 Gastric ulcer, unspecified as acute or chronic, without hemorrhage or perforation; I10 Essential (primary) hypertension; E78.2 Mixed hyperlipidemia; E11.9 Type 2 diabetes mellitus without complications; E66.9 Obesity, unspecified; Z98.890 Other specified postprocedural states; Z90.49 Acquired absence of other specified parts of digestive tract; Z87.891 Personal history of nicotine dependence; Z88.8 Allergy status to other drugs, medicaments and biological substances; Z79.84 Long term (current) use of oral hypoglycemic drugs; Z68.42 Body mass index [BMI] 45.0-49.9, adult
CPT/HCPCS: 43239; 82947; J2250; J2704; J7120; 00731; 88305